=== PATIENT | female | born 2005 | race Caucasian/White ===

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

== ENCOUNTER 2024-08-18 14:53 | Emergency (ER) | payer OTHER, SELFPAY ==
--- NOTE | 2024-08-18 15:47 | ED_ITS ---
Discharge Plan Disposition Patient Disposition: Home, Self-Care Condition: Good Prescriptions Prescriptions: New ondansetron 4 mg Tablet,Disintegrating 4 mg PO Q8H PRN (Reason: Nausea) Qty: 12 0RF No Action buspirone 10 mg tablet 20 mg PO BID Qty: 120 2RF escitalopram oxalate [Lexapro] 20 mg tablet 20 mg PO DAILY Qty: 90 0RF trazodone 50 mg tablet 50 mg PO QHS PRN (Reason: sleep) Qty: 90 0RF norethindrone-e.estradiol-iron 1 EACH tablet 1 each PO DAILY Referrals Follow up/Referrals: Terrell Carlos MD [Primary Care Provider] - See instructions Activity Restrictions/Add. Instructions Additional Instructions/Restrictions: Drink plenty of fluids. Take tylenol or ibuprofen for pain or fever. Take the medications as directed. Follow up with your regular doctor. GO TO THE ER FOR ANY WORSENING SYMPTOMS Clinical Impressions Clinical Impression: Gastroenteritis Stand Alone Forms Stand Alone Forms: Work/School Release Instructions Patient Instructions: Viral Gastroenteritis, DI for Viral Gastroenteritis -- Adult, Ondansetron Print Language Print Language: Albanian Discharge ED Provider: Diaz Francisco [facility] HPI General Stated complaint: fever,diarrhea flu shot 48hrs ago rahman Time Seen by Provider: 08/18/24 15:47 History of Present Illness Provider Complaint: She states that since last night she has had diarrhea and nausea. She has also had a low grade fever at times. She denies any abdominal pain. Related Data Home Medications ?Medication ?Instructions ?Recorded ?Confirmed norethindrone 1.5 mg-ethinyl 1 each PO DAILY control 01/12/22 04/04/24 estradiol 30 mcg(21)/iron 75 mg(7) tablet Previous Rx's ?Medication ?Instructions ?Recorded buspirone 10 mg tablet 20 mg (2 x 10 mg) PO BID #120 tabs 07/21/24 escitalopram oxalate 20 mg tablet 20 mg PO DAILY #90 tabs 07/21/24 (Lexapro) trazodone 50 mg tablet 50 mg PO QHS PRN sleep #90 tabs 07/21/24 ondansetron 4 mg disintegrating 4 mg PO Q8H PRN Nausea #12 tabs 08/18/24 tablet Allergies Allergy/AdvReac Type Severity Reaction Status Date / Time amoxicillin [AMOXICILLIN] Allergy Mild NA-NAUSEA/V Verified 07/21/24 10:44 OMITING PFSH PFSH Disclaimer: The information contained in this section may have been updated after the patient was seen, as this information can be updated by other users. Medical History (Updated 08/18/24 @ 15:59 by Diaz Francisco APRN) Generalized anxiety disorder Major depressive disorder Social History (System 02/09/22 @ 10:37 by Charbel Stone) Smoking Status: Current every day smoker second hand exposure: No alcohol intake: never substance use type: denies use current occupational status: employed Travel in the last 8 weeks: None household members: family housing: house number of children: 0 current occupational exposures/hazards: No caffeine: No ROS Obtained: Yes All systems reviewed & no additional complaints except as documented Constitutional Constitutional: Denies chills, Denies fever(s) and Reports poor appetite ENT Ears, Nose, Mouth, and Throat: Denies dizziness and Denies sore throat Cardiovascular Cardiovascular: Denies dyspnea Respiratory Respiratory: Denies chest congestion, Denies cough and Denies dyspnea Gastrointestinal Gastrointestingal: Reports as per HPI; Denies abdominal pain Genitourinary Female Genitourinary: Denies difficulty voiding, Denies dysuria, Denies hematuria, Denies urinary frequency, Denies urinary incontinence, Denies urinary hesitancy and Denies urinary urgency Musculoskeletal Musculoskeletal: Denies arthralgias Integumentary/Breasts Skin/Breast: Denies rash Neurologic Neurologic: Denies dizziness Physical Exam General General appearance: alert and in no apparent distress Head Head exam: atraumatic and normocephalic Eye Eye exam: Present normal appearance, PERRL and EOMI ENT ENT exam: Present normal exam, normal oropharynx, mucous membranes moist, TM's normal bilaterally and normal external ear exam Neck Neck exam: Present normal inspection, full ROM and trachea midline; Absent tenderness, meningismus or lymphadenopathy Chest Chest inspection: Present normal inspection and symmetric chest wall rise; Absent tenderness, rash or abscess Respiratory Respiratory exam: Present normal lung sounds bilaterally; Absent respiratory distress, wheezes or stridor Cardiovascular Cardiovascular exam: Present regular rate and normal rhythm; Absent irregular rhythm, systolic murmur, diastolic murmur or JVD Abdominal Exam Abdominal exam: Present soft and hyperactive bowel sounds; Absent distention, tenderness, guarding, rebound, rigidity, psoas sign, obturator sign, heel tap sign, King's sign, Rovsing's sign or tenderness at McBurney's Point Extremities Exam Extremities exam: Present normal inspection and full ROM; Absent tenderness Back Exam Back exam: Present normal inspection and full ROM; Absent tenderness, CVA ten derness (R) or CVA tenderness (L) Neurological Exam Neurological exam: Present alert, oriented X3 and CN II-XII intact Psychiatric Psychiatric exam: Present normal affect and normal mood Skin Skin exam: Present warm, dry, intact and normal color Lymphatic Lymphatic Findings: no adenopathy Medical Decision Making Medical Records Medical records reviewed: No I reviewed the patient's medical records. Screening: Per USPSTF and CDC recommendations, given the prevalence of disease in our [facility], it is our hospital?s policy to screen for HIV and viral Hepatitis for all patients aged 18 and over and those with ongoing risk factors. Walt Inquiry Pt receiving controlled substance: No Lab Data Lab results reviewed: Yes I reviewed the patient's lab results.
[2024-08-18 15:51] VITALS: BP 123/61; PULSE 76; RESP 20; TEMP 37.2; O2SAT 98; BMI 39.8
[2024-08-18 16:01] VITALS: BP 123/61; PULSE 76; RESP 20; TEMP 37.2
== END 2024-08-18 16:14 | disposition home or self-care (01) ==
PROVIDERS: Emergency Provider Nurse Practitioner Family; PCP Internal Medicine Adolescent Medicine
DX: K52.9 Noninfective gastroenteritis and colitis, unspecified (principal)
CPT/HCPCS: 99213; G0381

== ENCOUNTER 2024-11-10 09:32 | Emergency (ER) | payer OTHER, SELFPAY ==
--- NOTE | 2024-11-10 09:39 | EXP.UTC ---
Discharge Plan Disposition Patient Disposition: Home, Self-Care Condition: Good Prescriptions Prescriptions: New nitrofurantoin monohyd/m-cryst [Macrobid] 100 mg Capsule 100 mg PO BID Qty: 10 0RF Rx Instructions: must administer with a meal/food ondansetron 4 mg Tablet,Disintegrating 4 mg PO Q8H PRN (Reason: Nausea) Qty: 12 0RF No Action norethindrone-e.estradiol-iron [Nhung Fe 1.5/30 (28)] 1.5 mg-30 mcg (21)/75 mg (7) tablet 1 tab PO DAILY Patient Comments: TAKE ONE TABLET BY MOUTH EVERY DAY trazodone 50 mg tablet 50 mg PO DAILY Patient Comments: TAKE ONE TABLET BY MOUTH EVERY DAY AT BEDTIME NEEDED FOR SLEEP buspirone 10 mg tablet 10 mg PO BID Patient Comments: TAKE TWO TABLETS BY MOUTH TWICE DAILY escitalopram oxalate 20 mg tablet 20 mg PO DAILY Patient Comments: TAKE ONE TABLET BY MOUTH EVERY DAY levocetirizine 5 mg tablet 5 mg PO DAILY Patient Comments: TAKE ONE TABLET BY MOUTH EVERY DAY multivitamin with folic acid [Tab-A-Lavern] 400 mcg tablet 1 tab PO DAILY Patient Comments: TAKE ONE TABLET BY MOUTH EVERY DAY Referrals Follow up/Referrals: Terrell Carlos MD [Primary Care Provider] - See instructions Activity Restrictions/Add. Instructions Additional Instructions/Restrictions: Drink plenty of fluids. Take tylenol or ibuprofen for pain or fever. Take the medications as directed. Follow up with your regular doctor. GO TO THE ER FOR ANY WORSENING SYMPTOMS The pyridium will make your urine turn orange, this is an expected side effect. It will stain your clothes if it comes into contact with them. We will culture the urine. That will tell what bacteria is causing your infection and which antibiotics will treat it best.This test takes 3 days to complete. Clinical Impressions Clinical Impression: UTI (urinary tract infection) Qualifiers: Urinary tract infection type: site unspecified Hematuria presence: without hematuria Qualified Code(s): N39.0 - Urinary tract infection, site not specified Stand Alone Forms Stand Alone Forms: Work/School Release Instructions Patient Instructions: Urine Culture, DI for Urinary Tract Infection (UTI), Nitrofurantoin Print Language Print Language: Romanian Discharge ED Provider: Diaz Francisco [facility] General Stated complaint: constant pain urinating Time Seen by Provider: 11/10/24 09:39 History of Present Illness Provider Complaint: She states that for the past 3 days she has had dysuria, urinary frequency, and hesitancy. Related Data Home Medications ?Medication ?Instructions ?Recorded ?Confirmed buspirone 10 mg tablet 10 mg PO BID 11/10/24 11/10/24 escitalopram oxalate 20 mg tablet 20 mg PO DAILY 11/10/24 11/10/24 levocetirizine 5 mg tablet 5 mg PO DAILY 11/10/24 11/10/24 multivitamin with folic acid 400 1 tab PO DAILY 11/10/24 11/10/24 mcg tablet (Tab-A-Lavern) norethindrone 1.5 mg-ethinyl 1 tab PO DAILY 11/10/24 11/10/24 estradiol 30 mcg(21)/iron 75 mg(7) tablet (Nhung Fe 1.5/30 (28)) trazodone 50 mg tablet 50 mg PO DAILY 11/10/24 11/10/24 Previous Rx's ?Medication ?Instructions ?Recorded nitrofurantoin 100 mg PO BID #10 caps 11/10/24 monohydrate/macrocrystals 100 mg capsule (Macrobid) ondansetron 4 mg disintegrating 4 mg PO Q8H PRN Nausea #12 tabs 11/10/24 tablet Allergies Allergy/AdvReac Type Severity Reaction Status Date / Time amoxicillin (AMOXICILLIN) Allergy Mild NA-NAUSEA/V Verified 11/09/24 08:57 OMITING PFSH PFSH Disclaimer: The information contained in this section may have been updated after the patient was seen, as this information can be updated by other users. Medical History Generalized anxiety disorder Major depressive disorder Social History Smoking Status: Current every day smoker second hand exposure: No alcohol intake: never substance use type: denies use current occupational status: employed Travel in the last 8 weeks: None household members: family housing: house number of children: 0 current occupational exposures/hazards: No caffeine: No Have you lived/traveled outside US in past 30 days?: No Contact w/someone who lives/traveled outside US past 30 days?: No Exposure to someone with infectious disease in past 14 days?: Yes Do you have a fever (greater than 100.4 F or 38 C)?: No Have you tested positive for COVID-19: No Exposed to someone with COVID-19 in past 14 days?: Yes Do you have a sore throat?: No Do you have a cough?: No Do you have any weakness?: No Do you have any diarrhea?: No Are you experiencing any unusual bleeding?: No Do you have any muscle aches/pain?: No Do you have any abdominal pain?: No Are you experiencing loss of taste or smell?: No ROS Obtained: Yes All systems reviewed & no additional complaints except as documented Constitutional Constitutional: Reports system reviewed and no additional complaints, except as documented, Denies chills and Denies fever(s) Eyes Eyes: Denies eye discharge ENT Ears, Nose, Mouth, and Throat: Denies dysphagia, Denies sore throat and Denies throat swelling Cardiovascular Cardiovascular: Denies chest pain and Denies dyspnea Respiratory Respiratory: Denies chest congestion, Denies cough and Denies dyspnea Gastrointestinal Gastrointestingal: Denies abdominal pain, constipation, diarrhea, dysphagia, nausea or vomiting Genitourinary Female Genitourinary: Reports as per HPI, Reports dysuria, Reports urinary frequency, Denies urinary incontinence, Reports urinary hesitancy and Reports urinary urgency Musculoskeletal Musculoskeletal: Denies arthralgias and Reports back pain Integumentary/Breasts Skin/Breast: Denies rash Neurologic Neurologic: Denies paresthesias Allergic/Immunologic Allergic/Immunologic: Denies throat swelling Physical Exam General General appearance: alert and in no apparent distress Head Head exam: atraumatic and normocephalic Eye Eye exam: Present normal appearance, PERRL and EOMI ENT ENT exam: Present normal exam, mucous membranes moist, TM's normal bilaterally and normal external ear exam Neck Neck exam: Present normal inspection, full ROM and trachea midline; Absent tenderness, meningismus or lymphadenopathy Chest Chest inspection: Present normal inspection and symmetric chest wall rise; Absent tenderness Respiratory Respiratory exam: Present normal lung sounds bilaterally; Absent respiratory distress, wheezes or stridor Cardiovascular Cardiovascular exam: Present regular rate, normal rhythm and normal heart sounds Abdominal Exam Abdominal exam: Present soft and normal bowel sounds; Absent distention, tenderness, guarding, rebound, rigidity, incision, psoas sign, obturator sign, heel tap sign, King's sign, Rovsing's sign or tenderness at McBurney's Point Extremities Exam Extremities exam: Present normal inspection, full ROM and normal capillary refill; Absent tenderness, edema, joint swelling, calf tenderness or cyanosis Back Exam Back exam: Present normal inspection and full ROM; Absent tenderness, CVA tenderness (R) or CVA tenderness (L) Neurological Exam Neurological exam: Present alert, oriented X3 and normal gait Psychiatric Psychiatric exam: Present normal affect and normal mood Skin Skin exam: Present warm, dry, intact and normal color Lymphatic Lymphatic Findings: no adenopathy Medical Decision Making Medical Records Medical records reviewed: No I reviewed the patient's medical records. Screening: Per USPSTF and CDC recommendations, given the prevalence of disease in our region, it is our hospital?s policy to screen for HIV and viral Hepatitis for all patients aged 18 and over and those with ongoing risk factors. Walt Inquiry Pt receiving controlled substance: No Lab Data Lab results reviewed: Yes I reviewed the patient's lab results.
[2024-11-10 09:45] VITALS: BP 125/76; PULSE 75; RESP 19; TEMP 36.8; O2SAT 100; BMI 40.0
[2024-11-10 10:08] LABS: Apearance,Urine Cloudy (Clear); Bilirubin,Urine Negative (Negative); Blood, Urine Negative (Negative); Color,Urine Dark Yellow (Yellow); Glucose,Urine (UA) 1+ (Negative); Ketones,Urine Negative (Negative); Protein,Urine Trace (Negative); Specific Gravity, Urine 1.025 (1.005-1.030); UTC Leukocyte Esterase,Urine Trace (Negative); UTC Nitrate,Urine Positive (Negative); Urobilinogen,Urine 1 EU/dl (0.2)
[2024-11-10 10:10] LABS: Coronavirus 19, PCR Not Detected (NotDetected); Influenza A, PCR Not Detected (NotDetected); Influenza B, PCR Not Detected (NotDetected)
[2024-11-10 10:28] VITALS: BP 125/76; PULSE 75; RESP 19; TEMP 36.8; O2SAT 100
== END 2024-11-10 10:35 | disposition home or self-care (01) ==
PROVIDERS: Emergency Provider Nurse Practitioner Family; PCP Internal Medicine Adolescent Medicine
DX: N39.0 Urinary tract infection, site not specified (principal); J11.1 Influenza due to unidentified influenza virus with other respiratory manifestations
CPT/HCPCS: 81003; 87086; 87636; 99213; G0381

== ENCOUNTER 2025-02-13 09:31 | Outpatient (CLI) | payer MEDICAID, OTHER, SELFPAY ==
[2025-02-13 09:54] VITALS: BMI 40.7
[2025-02-13 10:33] LABS: Urine Pregnancy, HCG Qual. Negative (Negative)
[2025-02-13 10:33] LABS: Basophils % 0.2 % (0.1-2.0); Eosinophils % 0.5 % (0.1-12.0); Hematocrit 40.4 % (37.0-47.0); Hemoglobin 13.3 g/dL (12.2-16.2); Lymphocytes # 2.3 K/mm3 (0.7-4.5); Lymphocytes % 27.7 % (10-50); Mean Corpuscular HGB Conc 32.9 g/dL (31.8-35.4); Mean Corpuscular Hemoglobin 28.3 pg (27.0-31.2); Mean Platelet Volume 8.5 fl (7.4-10.4); Monocytes # 0.4 K/mm3 (0.1-1.0); Monocytes % 4.5 % (1.7-9.3); Neutrophils # 5.4 K/mm3 (1.8-7.8); Neutrophils % 66.9 % (37.0-80.0); Nucleated Red Blood Cells # 0 10^3/uL; Nucleated Red Blood Cells % 0 %; Platelet Count 461 K/mm3 (142-424); Red Cell Distribution Width 13.2 % (11.5-17.5); Red Cell Distribution Width-SD 40.9 fL; White Blood Count 8.2 K/mm3 (4.5-13.0)
[2025-02-13 10:36] LABS: Chloride 103 mmol/L (98-107); Potassium 3.6 mmoL/L (3.5-5.1); Sodium 138 mmol/L (136-145)
[2025-02-13 10:38] LABS: Blood Urea Nitrogen 9 mg/dl (7-17); Creatinine Clearance Estimated 185 mL/min (50-200); Estimated Glomerular Filt Rate 91 ml/min (>60); GFR (African American) 111 ML/MIN (>60)
[2025-02-13 10:39] LABS: Anion Gap 11.6 mEq/L (5-15); Calcium 9.3 mg/dl (8.4-10.2); Carbon Dioxide 27 mmol/L (22.0-30.0); Glucose 109 mg/dl (74-100)
[2025-02-13 15:21] LABS: Alanine Aminotransferase 18 U/L (12-78); Albumin Level 4.3 g/dl (3.5-5.0); Alkaline Phosphatase 77 U/L (38-126); Aspartate Amino Transferase 28 U/L (14-36); Bilirubin,Direct 0.2 mg/dl (0.0-0.4); Bilirubin,Indirect 0.4 mg/dL (0.0-0.9); Bilirubin,Total 0.6 mg/dl (0.2-1.3); Bilirubin,Unconjugated 0.3 mg/dL (0.0-1.1); Total Protein,Serum 8.4 g/dl (6.3-8.2)
[2025-02-13 15:38] LABS: Free T4 (Free Thyroxine) 1.19 ng/dl (0.78-2.19)
[2025-02-13 15:52] LABS: Thyroid Stimulating Hormone 1.23 uIU/mL (0.465-4.68)
[2025-02-13 15:58] LABS: Hemoglobin A1C 5.1 % (4.0-6.0)
[2025-02-13 16:11] LABS: Vitamin B12 241 pg/mL (239-931)
[2025-02-13 16:46] LABS: 25-OH Vitamin D, Total 42.4 ng/mL (30-100)
== END 2025-02-13 23:59 | disposition home or self-care (01) ==
LOC: PREOP 09:41
PROVIDERS: Physician Assistant; PCP Internal Medicine Adolescent Medicine; Visit Provider Surgery
DX: L05.91 Pilonidal cyst without abscess (principal); R53.83 Other fatigue; R73.9 Hyperglycemia, unspecified; R40.0 Somnolence; Z68.35 Body mass index [BMI] 35.0-35.9, adult
CPT/HCPCS: 80048; 80076; 81025; 82306; 82607; 83036; 84439; 84443; 85025

== ENCOUNTER 2025-02-26 06:51 | Day surgery (SDC) | payer MEDICAID, OTHER, SELFPAY ==
[2025-02-22 14:39] VITALS: BMI 39.8
[2025-02-26] VITALS (8 sets, daily range): BP systolic 125–160; BP diastolic 56–96; PULSE 77–103; RESP 17–20; TEMP 36.7–37; O2SAT 95–100
[2025-02-26] MEDS: LACTATED RINGERS 1000ML 1,000 ML 25 ML IV (07:45)
[2025-02-26 08:00] LABS: Urine Pregnancy, HCG Qual. Negative (Negative)
--- NOTE | 2025-02-26 08:14 | EXP.ANES.CKL ---
[facility] Disclaimer: The information contained in this section may have been updated after the patient was seen, as this information can be updated by other users. Medical History Generalized anxiety disorder Major depressive disorder Surgical History History of colonoscopy Family History Other Family history of cancer Family history of diabetes mellitus Family history of heart disease Social History Smoking Status: Current every day smoker second hand exposure: No alcohol intake: never substance use type: denies use current occupational status: employed Travel in the last 8 weeks?: None household members: family housing: house number of children: 0 current occupational exposures/hazards: No caffeine: No Have you lived/traveled outside US in past 30 days?: No Contact w/someone who lives/traveled outside US past 30 days?: No Exposure to someone with infectious disease in past 14 days?: No Do you have a fever (greater than 100.4 F or 38 C)?: No Have you tested positive for COVID-19?: No Exposed to someone with COVID-19 in past 14 days?: No Do you have a sore throat?: No Do you have a cough?: No Do you have any weakness?: No Do you have any diarrhea?: No Are you experiencing any unusual bleeding?: No Do you have any muscle aches/pain?: No Do you have any abdominal pain?: No Are you experiencing loss of taste or smell?: No [facility] Anesthesia Checklist Patient Identification Patient Identification: Arm Band Structural Data Admitted From: Home Planned Operative Procedure/s: Excision of Pilonidal Cyst Consent for Planned Operative Procedure(s) Verified: Yes Verified Documents: Surgical Consent and History and Physical NPO Status Verified Time NPO: 00:00 Additional verifications Anesthesia Reactions: No Hx Blood Transfusions: No Blood Transfusion Reaction: No Airway Assessment Mallampati Score:: Class II C-Spine Mobility Assessed: Yes TMJ Mobility Assessed: Yes Dentition: Good Dentition Neurological Assessment Level of Consciousness: Awake, Alert and Appropriate Anesthesia Plan Anesthesia Risk discussed: Yes Anesthesia Plan: Verified ASA Class: II Anesthesia Type: General
[2025-02-26] MEDS: CLINDAMYCIN PHOSPHATE/D5W 900 MG/50 ML PIGGYBACK 100 MG IV (08:30)
[2025-02-26] MEDS: LIDOCAINE 1% 20ML MDV 20 ML (08:45)
[2025-02-26] MEDS: ROPIVACAINE 0.5% 30ML VIAL 150 MG (08:46)
--- NOTE | 2025-02-26 08:51 | EXP.OP.NOTE ---
Date of procedure: 02/26/25 Pre-op Diagnosis:: Pilonidal cyst Post-op Diagnosis:: Same Procedure performed:: Excision debridement of pilonidal cyst Surgeon:: Adam Wall MD [employer] ADMINISTRATOR:: Diaz Fink Anesthesia: GETKelly Estimated blood loss (mL): 3 Clinical Note:: Patient presents excision of pilonidal cyst. I have been following her since August. She has had evidence of pilonidal cyst inflammation. Never had any drainage. Has not required any incision and drainage thus far. She actually had symptomatic pilonidal cyst with infection in [address] Dunbar and symptoms resolved with conservative management. She is continue to have recurrent symptoms characterized by discomfort and soreness despite multiple courses of antibiotics. Given the refractory recurrent nature of the symptoms despite multiple courses of antibiotics it may be reasonable to proceed with intervention at this time. I discussed this is an option with her. She would like to pursue this. Plan will be for incision and unroofing of the pilonidal disease with debridement. Operative findings:: She had some relatively limited pilonidal disease at the area of the 2 sinus openings with some minimal tracking inferiorly. Operative note:: Consent was obtained patient was taken the operating room. She was given preoperative intravenous antibiotics. The operating room she was placed in a supine position. General anesthesia was induced. She was repositioned and prone position. The area was prepped and draped in the standard surgical fashion. At the site of the 2 mildly irritated pilonidal sinus openings adjacent to 1 another 4 mm punch biopsy was used. This limited tissue was excised. Underlying this still wound was probed. There was some inferior tracking. This was opened somewhat but this underlying tissue appeared to be noninflamed. The tissue focally around the site of the pilonidal sinus openings was somewhat inflamed. It was debrided with a curette. Hemostasis was achieved with electrocautery. Wound was irrigated. Local anesthetic was infiltrated. It was packed with a dry packing gauze. Clean dry sterile dressings were applied Condition: stable Disposition: PACU Complications:: None immediately apparent
--- NOTE | 2025-02-26 09:05 | EXP.ANES.I ---
[facility] Anesthesia Record Part I Anesthesia Record I Intake, IV Amount: 899 Hydration: Adequate Estimated blood loss (mL): 5 Urine output (mL): 0 Blood Products used (#): none Blood Pressure: 137/94 SaO2: 97 Pulse Rate: 83 Airway Patency: Patent Respiratory Rate: 18 Temperature: 98.6 F Patient is:: Drowsy and Stable Stable to PACU at:: 09:00
[2025-02-26] MEDS: HYDROCODONE/APAP 5/325 MG TABLET 1 TAB PO (10:07)
[2025-02-27 11:06] VITALS: BP 160/69; PULSE 95; RESP 17; TEMP 36.1; O2SAT 95
--- NOTE | 2025-02-27 11:06 | EXP.ANES.II ---
[facility] Anesthesia Record Part II Anesthesia Record Part II Discharge Time: 10:10 Destination: Surgical Day Care (OP Surgery) PACU nurse assessment reviewed?: Yes Patient Condition:: Good Anesthesia Complications:: None Swallowing reflex intact?: Yes Airway Patency: Patent Cyanosis?: No Blood Pressure: 160/69 SaO2: 95 Respiratory Rate: 17 Pulse Rate: 95 Temperature: 97.0 F Mental Status: Alert & Oriented Pain level:: 0 Nausea and/or vomitting:: None Intake, IV Amount: 0 Hydration: Adequate
== END 2025-02-26 13:41 | disposition home or self-care (01) ==
PROVIDERS: PCP Internal Medicine Adolescent Medicine; Visit Provider Surgery
PROC: (CPT 11770; principal; 2025-02-26 08:35)
DX: L05.91 Pilonidal cyst without abscess (principal)
CPT/HCPCS: 11770; 81025; J0736; J1100; J2250; J2405; J3010; J7120

== ENCOUNTER 2025-04-23 08:34 | Emergency (ER) | payer OTHER, MEDICAID, SELFPAY ==
--- OUTSIDE RECORDS SUMMARY | 2025-01-27 17:30 | XMS_ITS ---
Author Organization formerly [facility] Address [address] [place] [address] Care Team Providers Care Buyer Assistant Name Role Phone Terrell Carlos Primary Care Provider Unavailabl e Terrell Carlos Unavailable [phone] Migration, Provider Unavailable Unavailable Allergies Allergen (clinical drug ingredient) Drug/Non Drug Allergy documented on EMR Reaction Allergy Type Onset Date Status amoxicillin Amoxicillin throws up Drug Allergy Act joss REASON FOR VISIT [facility] Conversion Encounter Medications Medication SIG (Take, Route, Frequency, Duration) Notes Start Date End Date Status MiraLax - 1-CAPFULS ORALLY ONCE A DAY *Please review and pick correct strength-formulatio n from [employer] options. If intended option is not shown, discontinue and re-order from Quick Search* 11/16/2024 Active Ondansetron 4 MG 1 tab(s) orally every 6 hours prn; Duration: 7 days 12/08/2024 Active Blisovi Fe 1.5/30 WITH IRON 30 MCG-1.5 MG TAKE ONE TABLET BY MOUTH EVERY DAY; Duration: 28 DAYS *Please review and pick correct strength[facility]ulatio [facility]. If intended option is not shown, discontinue and re-order from Quick Search* Active busPIRone HCl 10 MG 1 tab(s) orally 2 times a day; Duration: 30 days Active Omeprazole 20 MG 1 cap(s) orally once a day; Duration: 30 days 01/16/2025 Active hydrOXYzine HCl 25 MG 1 tab(s) orally every 12 hours as needed for sleep or anxiety; Duration: 30 days Active Singulair 10 MG 1 tab(s) orally once a day; Duration: 30 Active Xyzal Allergy 24HR 5 MG 1 tab(s) orally once a day (in the evening); Duration: 30 Active Tab-A-Lavern - TAKE ONE TABLET BY MOUTH EVERY DAY; Duration: 30 Active Symbicort 160-4.5 MCG/ACT 2 puff(s) inhaled 2 times a day; Duration: 30 days Active Escitalopram Oxalate 20 MG 1/2 tab orally once a day Active Nasacort Allergy 24HR 55 MCG/ACT 1 spray(s) in each nostril once a day Active Encounters Encounter Location Date Provider Diagnosis [facility] [address] [facility] [address] [facility] [address] [place] [address] 01/27/2025 Provider Migration Nausea R11.0 and Social anxiety disorder F40.10 Assessments Encounter Date Diagnosis (ICD Code) Assessment Notes Treatment Notes Treatment Clinical Notes Section Notes 01/27/2025 Nausea (ICD-10 - R11.0) 01/27/2025 Social anxiety disorder (ICD-10 - F40.10) Plan Of Treatment Medication Medication Name Sig Start Date Stop Date Notes Omeprazole 20 MG 1 cap(s) orally once a day; Duration: 30 days 01/16/2025 Escitalopram Oxalate 20 MG 1/2 tab orally once a day Next Appt Details Provider Name:Angela Mattson Cezar , 04/26/2025 03:45:00 PM, [address] [facility] [address] [facility], [address], [place], [address], Progress Notes * Cailin MEDINA MDOB:[birth year] (20 yo F)Acc No.[id number]:01/27/2025 Patient: Cailin VELASCO Provider: Epi saldivar Migration :2005 A ge:19 Y S ex:Female Date:01/27/2025 [place] [place], [id number] Pcp:Terrell Carlos Subjective: * Chief Complaints: * 1 . [facility] En[facility]. * Medical History: * Medications: T aking Nasacort Allergy 24HR 55 MCG/ACT Aerosol 1 spray(s) in each nostril once a day , Taking hydrOXYzine HCl 25 MG Tablet 1 tab(s) orally every 12 hours as needed for sleep or anxiety , Taking Xyzal Allergy 24HR 5 MG Tablet 1 tab(s) orally once a day (in the evening) , Taking Singulair 10 MG Tablet 1 tab(s) orally once a day , Taking Symbicort 160-4.5 MCG/ACT Aerosol 2 puff(s) inhaled 2 times a day , Taking Tab-A-Lavern - Tablet TAKE ONE TABLET BY MOUTH EVERY DAY , Taking Ondansetron 4 MG Tablet Disintegrating 1 tab(s) orally every 6 hours prn , Taking MiraLax - POWDER FOR RECONSTITUTION 1-CAPFULS ORALLY ONCE A DAY , Notes to Pharmacist: *Please review and pick correct strength-formulation from [facility] options. If intended option is not shown, discontinue and re-order from Quick Search*, Taking busPIRone HCl 10 MG Tablet 1 tab(s) orally 2 times a day , Taking Blisovi Fe 1.5/30 WITH IRON 30 MCG-1.5 MG TABLET TAKE ONE TABLET BY MOUTH EVERY DAY , Notes to Pharmacist: *Please review and pick correct strength-formulation from [facility] options. If intended option is not shown, discontinue and re-order from Quick Search* * Allergies: A moxicillin: throws up. Objective: * Vitals: Assessment: * Assessment: 1. N ausea - R11.0 (Primary) 2 . S ocial anxiety disorder - F40.10 ? Plan: * Treatment: 2. S ocial anxiety disorder Decrease Escitalopram Oxalate Tablet, 20 MG, 1/2 tab, orally, once a day. * * Electronic signature of Prov ider Migration on 04/23/2025 at 08:57 AM EDT Sign off status: Pending * Provider: Epi saldivar Migration Date: 0 01/27/2025 Generated for Naina hodgson/Massiel/Karinitting on: 0 04/23/2025 08:57 AM EDT
--- OUTSIDE RECORDS SUMMARY | 2025-03-16 06:00 | XMS_ITS ---
Author Organization [facility] Address [address] [place] [address] Care Team Providers Care Straddle Carrier Operator Name Role Phone Terrell Carlos Primary Care Provider Unavailabl Terrell Michael Unavailable [phone] Angela Shane Unavailable [phone] REASON FOR VISIT 1 Month F/U Encounters Encounter Location Date Provider Diagnosis [facility] [address] [address] 03/16/2025 Angela Shane Plan Of Treatment Next Appt Details Provider Name:Angela Robb , 04/26/2025 03:45:00 PM, [address], [place], [address], Progress Notes * Cailin MEDINA MDOB:[birth year] (20 yo F)Acc No.[id number]:03/16/2025 Progress Notes Patient: Cailin VELASCO Provider: MARJAN Hernandez :2005 A ge:19 Y S ex:Female Date:03/16/2025 Address:[address] [place] Pcp:Terrell Carlos Subjective: * Chief Complaints: * 1 . 1 Month F/U. * Medical History: Objective: * Vitals: Assessment: Plan: * Treatment: * * Electronic signature of Lise Shane PA-C on 04/23/2025 at 08:58 AM EDT Sign off status: Pending * Provider: MARJAN Hernandez Date: 0 03/16/2025 Generated for Naina hodgson/Massiel/eTanupam on: 0 04/23/2025 08:58 AM EDT
--- OUTSIDE RECORDS SUMMARY | 2025-04-23 08:00 | XMS_ITS | Encounter Summary ---
Author Organization [facility] Address [address] [place] [address] Phone [email or web address] Care Team Providers Care Wood Boat Builder Supervisor Name Role Phone Unavailable Primary Care Provider Unavailabl e Reason for Visit * Reason Comments Health Center Offerings Encounter Details Date Type Department Care Team (Latest Contact Info) Description 04/23/2025 8:00 AM EDT Clinical Support [facility] [place] [address] [facility] [address] [place] [address] Kathy Saldivar, RN [address] [place] [address] Acute right ankle pain (Primary Dx) Social History Tobacco Use Types Packs/Day Years Used Date Smoking Tobacco: Never Assessed Comments Unknown Sex and Gender Information Value Date Recorded Sex Assigned at Not on file Legal Sex Female 6:53 AM CDT Gender Identity Not on file Sexual Orientation Not on file documented as of this encounter Last Filed Vital Signs Vital Sign Reading Time Taken Comments Blood Pressure 132/82 04/23/2025 8:12 AM EDT Pulse 77 04/23/2025 8:12 AM EDT Temperature - - Respiratory Rate - - Oxygen Saturation 98% 04/23/2025 8:12 AM EDT Inhaled Oxygen Concentration - - Weight - - Height - - Body Mass Index - - documented in this encounter Progress Notes * Kathy Saldivar RN - 04/23/2025 8:00 AM EDT Cailin Ro is a 20 y.o. 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 NAD. Pain rated 3/10 at rest. Reports this am ~ 05:30 she rolled her ankle in parking lot on uneven area of pavement with water. Trip no fall. No noted injury to UEs /Head. Alert and oriented. Pain with dorsiflexion and flexion atankle, swelling noted to lateral malleolus but no discoloration or deformity. No crepitus. Pedal pulses normal. She has been able to limp and work after incident. She did not feel a pop in ankle whenshe rolled ankle ( ? Inward or outward). Increase pain and swelling with ambulation. Mild TTP to lateral ankle. Advised if she feels she needs treatment or can't work to go to [facility]. Denies prior hxwith right ankle prior to incident. No other pain noted. Pain at worst with ambulation is 5/10. Vitals: 04/23/25 0812 BP: 132/82 Pulse: 77 SpO2: 98% There were no vitals filed for this visit. No results found for this or any previous visit. ICD-10-CM ICD-9-CM 1. Acute right ankle pain M25.571 719.47 338.19 trip/rolled ankle, swelling PE : As noted above. Pain with ambulation, swelling to lateral malleolus of right ankle. Mild tenderness. No discoloration or deformity. There are no Patient Instructions on file for this visit. Kathy Saldivar RN documented in this encounter Plan of Treatment Not on file documented as of this encounter Visit Diagnoses Diagnosis Acute right ankle pain- Primary documented in this encounter
[2025-04-23 08:44] VITALS: BP 118/70; PULSE 78; RESP 16; TEMP 36.9; O2SAT 99; BMI 40.7
--- OUTSIDE RECORDS SUMMARY | 2025-04-23 08:58 | XMS_ITS | Patient Health Record ---
Author Organization [facility] Address [address] [place] [address] Care Team Providers Care Hot Stick Worker Name Role Phone Terrell Carlos Primary Care Provider Unavailabl Terrell Michael Unavailable [phone] Angela Holm Unavailable [phone] Mariia Gonzalez Unavailable [phone] Angela Shane Unavailable [phone] Migration, Provider Unavailable Unavailable Allergies Allergen (clinical drug ingredient) Drug/Non Drug Allergy documented on EMR Reaction Allergy Type Onset Date Status amoxicillin Amoxicillin throws up Drug Allergy Act joss Results Component Value Reference Range Notes CULTURE, URINE, ROUTINE (395 ) Reviewed date:11/14/2024 10:04:52 AM Interpretation: Performing Lab:[place] Yuniel Christina Notes/Report: NON-FASTING CULTURE, URINE, ROUTINE SEE NOTE CULTURE, URINE, ROUTINE Micro Number: [id number] Test Status: Final Specimen Source: Urine Specimen Quality: Adequate Result: Mixed genital aki isolated. These superficial bacteria are not indicative of a urinary tract infection. No further organism identification is warranted on this specimen. If clinically indicated, recollect clean-catch, mid-stream urine and transfer immediately to Urine Culture Transport Tube. Urinalysis Reviewed date:11/09/2024 12:31:11 PM Interpretation: Performing Lab: Notes/Report: Color/Clarity yellow Leuk neg Nitrite neg Urobili 0.2 Protein neg pH 7.0 Blood neg Sp. Gr. >=1.030 Ketone neg Bili neg Glucose neg CULTURE, THROAT (394) Reviewed date:01/02/2025 04:43:56 PM Interpretation: Performing Lab:[place], [facility], [place] Yunielcinthya Christina Notes/Report: NON-FASTING CULTURE, THROAT SEE NOTE CULTURE, THROAT Micro Number: [id number] Test Status: Final Specimen Source: Throat Specimen Quality: Adequate Result: No oropharyngeal pathogens recovered. Rapid Strep Reviewed date:12/27/2024 11:58:24 AM Interpretation:Negative Performing Lab: Notes/Report: Negative Rapid Covid/Flu A-B Combo Reviewed date:06/15/2024 03:12:33 PM Interpretation: Performing Lab: Notes/Report: Rapid Covid positive Flu A neg Flu B neg Medications Medication SIG (Take, Route, Frequency, Duration) Notes Start Date End Date Status Omeprazole 20 MG 1 tablet 1/2 to 1 ho ur before morning meal Orally Once a day; Duration: 30 days 02/13/2025 Active busPIRone HCl 10 mg TAKE ONE TABLET BY M OUTH TWICE DAILY; Duration: 30 Active Ondansetron 4 MG 1 tab(s) orally ever y 6 hours prn; Duration: 7 days 12/08/2024 Active Nhung FE 1.5/30 1.5-30 MG-MCG 1 tablet Orally Once a day; Duration: 28 days Active Tab-A-Lavern - TAKE ONE TABLET BY M OUTH EVERY DAY; Duration: 30 Active traZODone HCl 50 MG 0.5 tablet at bedtim e as needed Orally Once a day; Duration: 30 days Active Symbicort 160-4.5 MCG/ACT 2 puff(s) inha led 2 times a day; Duration: 30 days Active Singulair 10 MG 1 tab(s) orally once a day; Duration: 30 Active Escitalopram Oxalate 20 MG 1 tablet oral ly once a day; Duration: 30 days Active Xyzal Allergy 24HR 5 MG 1 tab(s) orally once a day (in the evening); Duration: 30 Active Nasacort Allergy 24HR 55 MCG/ACT 1 spray(s) in each nostril once a day Active Immunizations Vaccine Route Administration Date Status Comme nts Menactra IM Intramuscular 05/09/2020 Administered Influenza-Fluzone 3+years (NON-MEDICARE) IM Intramuscular 09/05/2018 Administered Havrix Pediatric 2 Dose IM Intramuscular 12/23/2017 Admini stered Havrix Pediatric 2 Dose IM Intramuscular 07/07/2018 Admini stered Gardasil (HPV4) IM Intramuscular 10/05/2016 Administered Gardasil (HPV4) IM Intramuscular 02/23/2017 Administered Gardasil (HPV4) IM Intramuscular 07/27/2017 Administered FLUZONE 6MO - OLDER IM Intramuscular 08/29/2019 Administer ed FLUZONE 6MO - OLDER IM Intramuscular 07/15/2020 Administer ed Fluvirin--Influenza vaccine 3+ year IM Intramuscular 10/10/2010 Administered Fluvirin--Influenza vaccine 3+ year IM Intramuscular 07/20/2012 Administered Social History Tobacco Use: Social History Observation Description Date Details (start date - stop date) Never Smoker NA - NA Smoking: Question Answer Notes Are you a: nonsmoker Problems Problem Type SNOMED Code ICD Code Onset Dates Problem Status W/U Status Risk Notes Problem Functional dyspepsia (5588797) Functional dyspepsia (K30) Active confirmed Problem Slow transit constipation (07038919) Slow transit constipation (K59.01) Active confirmed Problem Mixed anxiety and depressive disorder (575666864) Depression with anxiety (F41.8) Active confirmed Problem Allergic rhinitis (51803010) Chronic allergic rhinitis (J30.9) Active confirmed Problem Urgent desire to urinate (41326493) Urinary urgency (R39.15) Active confirmed Problem Insomnia disorder related to another mental disorder (29722728) Psychophysiological insomnia (F51.04) Active confirmed Problem Social anxiety disorder (85413069) Social anxiety disorder (F40.10) Active confirmed Problem Childhood obesity (222528433) Pediatric body mass index (BMI) of greater than or equal to 95th percentile for age (Z68.54) Active confirmed Problem Metrorrhagia (54345022) Metrorrhagia (N92.1) Active confirmed Problem History of febrile seizure (275196896) History of febrile seizure (Z87.898) Active confirmed Problem Generalized anxiety disorder (76137479) VALENTE (generalized anxiety disorder) (F41.1) Active confirmed Problem Anxiety (65719092) Situational a nxiety (F41.8) Active confirmed Problem Daytime somnolence (997323899913) Daytime somnolence (R40.0) Active confirmed Problem Allergic rhinitis caused by pollen (34168596) Seasonal allergic rhinitis due to pollen (J30.1) Active confirmed Problem Seasonal allergic rhinitis (108167806) Seasonal allergic rhinitis, unspecified trigger (J30.2) Active confirmed Problem Allergic rhinitis (85103196) Acute allergic rhinitis (J30.9) Active confirmed Problem Medication overuse headache (944567574) Medication overuse headache (G44.40) Active confirmed Problem Allergic contact dermatitis (733193619) Allergic eczema (L23.9) Active confirmed Problem Obese class II (946565515818342) Body mass index [BMI] 35.0-35.9, adult (Z68.35) Active confirmed Problem Gastroesophageal reflux disease (914003158) Gastroesophageal reflux disease, unspecified whether esophagitis present (K21.9) Active confirmed Problem Loss of taste (18356096) Loss of taste (R43.2) Active confirmed Problem Acute cough (35342883657128303 4) Acute cough (R05.1) Active confirmed Vital Signs Heart Rate 76 /min 02/13/2025 Temperature 98.5 degrees Fahrenheit 02/13/2025 Blood pressure diastolic 78 mm Hg 02/13/2025 Height 64 in 02/13/2025 Blood pressure systolic 118 mm Hg 02/13/2025 Weight 230.6 lbs 02/13/2025 BMI 39.58 kg/m2 02/13/2025 Encounters Encounter Location Date Provider Diagnosis [facility] [address] [place] [address] 01/27/2025 Provider Migration Nausea R11.0 and Social anxiety disorder F40.10 [facility] [address] [place] [address] 06/15/2024 Angela Shane Acute cough R05.1 ; COVID U07.1 and Contusion of right breast, initial encounter S20.01XA [facility] [address] [address] 08/04/2024 Angela Shane Viral gastroenteriti s A08.4 [facility] [address] [place] [address] 08/25/2024 Angela Shane Pilonidal cyst L05.9 1 [facility] [address] [facility] [address] [place] [address] 11/09/2024 Mariia McNees Urinary urgency R39. 15 and Sensation of pressure in bladder area R39.89 [facility] [address] [facility] [address] [place] [address] 11/16/2024 Mariia McNees Slow transit constip ation K59.01 [facility] [address] [address] 12/08/2024 Mariia McNees Slow transit constip ation K59.01 [facility] [address] [address] 12/27/2024 Angela Alta Sore throat J02.9 [facility] [address] [facility] [address] [place] [address] 01/16/2025 Angela Holm Nausea R11.0 ; Socia l anxiety disorder F40.10 and Psychophysiological insomnia F51.04 [facility] [address] [facility] [address] [place] [address] 02/13/2025 Angela Shane Body mass index [BMI ] 35.0-35.9, adult Z68.35 ; Fatigue, unspecified type R53.83 ; Hyperglycemia R73.9 ; Daytime somnolence R40.0 ; Social anxiety disorder F40.10 ; Psychophysiological insomnia F51.04 and Gastroesophageal reflux disease, unspecified whether esophagitis present K21.9 [facility] [address] [facility] [address] [place] [address] 06/15/2024 Terrell Besson [facility] [address] [facility] [address] [place] [address] 11/10/2024 Mariia McNees [facility] [address] [facility] [address] [place] [address] 12/25/2024 Terrell Besson [facility] [address] [address] 02/05/2025 Terrell Carlos Assessments Encounter Date Diagnosis (ICD Code) Assessment Notes Treatment Notes Treatment Clinical Notes Section Notes 06/15/2024 COVID (ICD-10 - U07.1) Discu ssed importance of pulmonary toilet and hydration. Advised on vitamin regimen. Discussed reasons to seek care in clinic or ED (worsening cough, shortness of breath, high fever not responding to treatment, inability to tolerate typical PO intake). Also recommended self-quarantine at home per CDC guidelines. Back to work June 19 if fever free x 24 hours without taking fever reducing medications and feeling better. Discussed the etiology & expected course of a viral URI and discussed the rationale for not prescribing antibiotics. Continue supportive care with PRN antipyretics, OTC cough/cold meds Coricidin HBP, nasal saline rinses/Neti pot with distilled water, salt water gargles, cough drops, and humidifier. Encourage PO hydration. Discussed the signs and symptoms of worsening condition and need for reassessment in clinic or ED. Keep previously scheduled physical exam or f/u sooner PRN. Patient voices understanding and is agreeable to this plan. 06/15/2024 Acute cough (ICD-10 - R05.1) 08/04/2024 Viral gastroenteriti s (ICD-10 - A08.4) Reassurance. Discussed usual viral etiology and self-limiting condition. Encouraged BRAT diet and clear fluids. Monitor for evidence of significant dehydration and notify of any blood or mucus in stool. Avoid juice and anti-diarrheal agents. Use Tylenol as needed for fevers. May return to school when fever and vomiting have resolved for 24 hours. Discussed return precautions to clinic vs ED. Patient and family voice understanding. 08/25/2024 Pilonidal cyst (ICD- 10 - L05.91) History of pilonidal cyst in the past. Not infected currently. Reviewed s/s of abscess formation and for patient to return to office if this develops. Will refer back to General Surgery. Patient and family voice understanding and agree with the plan of care above. 11/16/2024 Slow transit constipation (ICD-10 - K59.01) Discussed what constipation is and how this is treated. Discussed starting Miralax at 1 capful in 8oz clear liquids once daily and titrating dose to affect. Patient may need to be on this for months. Discussed healthy diet high in fiber as well as increase water in diet. Goal is 1 soft BM per day. 12/08/2024 Slow transit constipation (ICD-10 - K59.01) Decrease miralax to 1 capful daily. [place] diet, zofran prn. RTC in 2-3 weeks to re-evaluate 01/16/2025 Nausea (ICD-10 - R11.0) possible gastritis vs medication side effect? trial of PPI. Stop trazodone. wean lexapro as tolerated and then consider weaning buspirone but do these things slowly as tolerated. return precautions reviewed 01/16/2025 Social anxiety disorder (ICD-10 - F40.10) 02/13/2025 Fatigue, unspecified type (ICD-10 - R53.83) I personally will review all labs once final. 02/13/2025 Body mass index [BMI ] 35.0-35.9, adult (ICD-10 - Z68.35) Discussed lifestyle changes to affect weight loss. Discussed the impact of diet, excercise, and weight loss on cardiovascular health, overall health, and overall quality of life. Discussed specific dietary changes and excercise routines that may benefit the patient. Will recheck BMI at next visit. 01/27/2025 Nausea (ICD-10 - R11.0) 01/27/2025 Social anxiety disorder (ICD-10 - F40.10) 12/27/2024 Sore throat (ICD-10 - J02.9) Recommend start antibiotics as noted, FU on culture when available and plan to stop antibiotics if negative for bacterial growth. Importance of good fluid intake and infectious precautions reviewed. 11/09/2024 Urinary urgency (ICD-10 - R39.15) Reassurance UA is unremarkable. May be related to bladder, urinary tract inflammation. Increase oral fluid intake, cranberry juice daily, pyridium x 2 days pending cx. Return precautions discussed. 11/09/2024 Sensation of pressur e in bladder area (ICD-10 - R39.89) 02/13/2025 Hyperglycemia (ICD-1 0 - R73.9) I personally will review all labs once final. 01/16/2025 Psychophysiological insomnia (ICD-10 - F51.04) 06/15/2024 Contusion of right breast, initial encounter (ICD-10 - S20.01XA) 1 cm circumscribed along right breast which appears to be a trauma induced bruise. Normal nipple, no nodules or lymphadenopathy. Discussed warm compress and return to clinic if worsens or no improvement in a week or if new symptoms develop. Patient voices understanding and agrees with the plan of care above. 02/13/2025 Daytime somnolence (ICD-10 - R40.0) I personally will review all labs once final. 02/13/2025 Social anxiety disorder (ICD-10 - F40.10) Stressed importance of medication compliance. Denies SI/HI. Referral placed for counseling. I personally will review all labs once final. Discussed lifestyle changes including limiting screen time, social media, moving TV our of room, eating three meals a day with a healthy snack, gratitude journaling, getting regular exercise with at least a 30 minute daily walk, joining groups, and therapy. Discussed a few exercises to bring the patient back into the present to utilize in anxious moments. 02/13/2025 Psychophysiological insomnia (ICD-10 - F51.04) Continue current medication regimen, controlled. Discussed importance of consistently taking medications. Discussed sleep hygiene. I personally will review all labs once final. 02/13/2025 Gastroesophageal reflux disease, unspecified whether esophagitis present (ICD-10 - K21.9) Discussed etiology of reflux. Printed education material. Avoid certain foods that exacerbate symptoms, such as caffeine and spicy foods. RTC if no improvement. Plan Of Treatment Pending Test Test Name Order Date EEG 01/19/2011 H-URINE CULTURE 12/17/2010 H-THROAT CULTURE 06/25/2011 H-STREP SCREEN (RAPID) 06/25/2011 H-INFLUENZAE A & B ANTIBODY 12/17/2017 H-URINALYSIS 12/17/2010 M-Hepatic Panel 02/13/2025 M-Hemoglobin A1C 02/13/2025 M-Free T4 (Free Thyroxine) 02/13/2025 M-Thyroid Stimulating Hormone 02/13/2025 M-Vitamin B12 02/13/2025 M-Vitamin D 25 Hydroxy 02/13/2025 Future Test Test Name Order Date H-CBC with AUTO DIFF 01/09/2012 H-CMP 01/09/2012 H-TRILEPTAL(OXCARBAZEPINE) 01/09/2012 Next Appt Details Provider Name:Angela Robb , 04/26/2025 03:45:00 PM, [address], [place], [address], Insurance Providers Payer Name Payer Address Payer Phone Subscriber Number Group Number Insured Name Patient Relationship to Insured Coverage Start Date Coverage End Date [employer] [place] [employer] [address] [address] [place] [address] [id number] Cailin Oropeza Self - patient is the insured Medications Administered Medication Instructions Date of Administration Dosage Notes Dexamethasone 4mg Injection 08/20/2023 4 mg Dexamethasone 4mg Injection 10/21/2023 4 mL Dexamethasone 4mg Injection 11/26/2023 4 mg Medical (General) History Medical History History ICD Code seasonal allergies h/o febrile seizure in 2004 EGD wtih bile reflux gastritis and evide nce of functional dyspepsis 03/14 Normal colonoscopy 06/14 Flu B Surgical History Surgery Date(Month/Year) correction for strabismus 12/2007 colonoscopy 04/2021 wisdom Teeth 06/2021 Hospitalization History Reason Date(Month/Year) febrile seizures 2004
--- OUTSIDE RECORDS SUMMARY | 2025-04-23 08:58 | XMS_ITS | Clinical Summary ---
Author Organization [facility] Address [address] [place] [phone] Phone [email or web address] Care Team Providers Care Rivet Sticker Name Role Phone Unavailable Primary Care Provider Unavailabl e Allergies Active Allergy Reactions Criticality Noted Date Comments Amoxicillin 04/23/2025 Medications No known medications Encounters Date Type Department Care Team Description 04/23/2025 8:00 AM EDT Clinical Support [facility] [address] [place] [address] [place] [address] Kathy Saldivar RN Acute right ankle pain (Primary Dx) from Last 3 Months Social History Tobacco Use Types Packs/Day Years Used Date Smoking Tobacco: Never Assessed Comments Unknown Sex and Gender Information Value Date Recorded Sex Assigned at Not on file Legal Sex Female 6:53 AM CDT Gender Identity Not on file Sexual Orientation Not on file Last Filed Vital Signs Vital Sign Reading Time Taken Comments Blood Pressure 132/82 04/23/2025 8:12 AM EDT Pulse 77 04/23/2025 8:12 AM EDT Temperature - - Respiratory Rate - - Oxygen Saturation 98% 04/23/2025 8:12 AM EDT Inhaled Oxygen Concentration - - Weight - - Height - - Body Mass Index - - Plan of Treatment Health Maintenance Due Date Last Done Comments Dental Cleaning/Exam 2004 Cervical Cancer Screening 2020 Men B Immunization (1 of 2 - Standard) 2020 Covid-19 Immunization ( - season) 2024 06/18/2022, 03/07/2021, 02/14/2021 Tetanus Diphtheria and Pertussis Immunization (7 - Td or Tdap) 05/06/2025 05/06/2015, 05/18/2008, 05/06/2006, Additional history exists Influenza Immunization (Season Ended) 2025 08/12/2022, 07/15/2020, 08/29/2019, Additional history exists Hepatitis B Immunization Completed 005, 2004, 2004 HIB Immunization Completed 05/18/2008, , 2004, Additional history exists Polio Immunization Completed 05/18/2008, 0 2004, 2004, Additional history exists Varicella Immunization Completed 05/06/2015, 2004 HPV Immunization Completed 07/27/2017, 02/23/2017 Hepatitis A Immunization Completed 07/07/2018, 03/0 10/2017 Meningococcal Immunization Completed 05/09/2020, Pneumococcal: Ped (0 to 5 Yrs) and At-Risk Member (6 to 64 Yrs) Aged Out No longer eligible based on patient's age to complete this topic
--- NOTE | 2025-04-23 09:02 | XR_ITS ---
FINAL REPORT CLINICAL HISTORY: inversion injury COMPARISON: None FINDINGS: RIGHT FOOT 2 views of the right foot were obtained. There is no acute fracture or dislocation. Visualized joint spaces are normally aligned. Soft tissues are unremarkable. IMPRESSION: No acute bony abnormality. Reviewed, Interpreted and Dictated by Teo Sheehan MD Transcribed by Yissel Joaquin Authenticated and [facility]
--- NOTE | 2025-04-23 09:02 | XR_ITS ---
FINAL REPORT TECHNIQUE: Right tibia and fibula 2 views CLINICAL HISTORY: inversion injury ankle, pain over shearer COMPARISON: None FINDINGS: RIGHT TIBIA FIBULA: There is no acute fracture or dislocation. The joint spaces are intact. There is no soft tissue abnormality. IMPRESSION: No acute fracture Reviewed, Interpreted and Dictated by Teo Sheehan MD Transcribed by Yissel Joaquin Authenticated and [facility]
--- NOTE | 2025-04-23 09:02 | XR_ITS ---
FINAL REPORT CLINICAL HISTORY: inversion injury COMPARISON: None FINDINGS: RIGHT ANKLE 3 views of the right ankle were obtained. There is no acute fracture or dislocation. The mortise is intact. Visualized joint spaces are normally aligned. Diffuse soft tissue swelling is present. IMPRESSION: Diffuse soft tissue swelling, without acute bony abnormality. Reviewed, Interpreted and Dictated by Teo Sheehan MD Transcribed by Yissel Joaquin Authenticated and [facility]
--- NOTE | 2025-04-23 09:03 | ED_ITS ---
Discharge Plan Disposition Patient Disposition: Home, Self-Care Prescriptions Prescriptions: No Action omeprazole 40 mg capsule,delayed release(DR/EC) 40 mg PO DAILY Qty: 90 0RF norethindrone-e.estradiol-iron [[place] Fe 1.5/30 (28)] 1.5 mg-30 mcg (21)/75 m g (7) tablet 1 tab PO DAILY Patient Comments: TAKE ONE TABLET BY MOUTH EVERY DAY trazodone 50 mg tablet 50 mg PO DAILY Patient Comments: TAKE ONE TABLET BY MOUTH EVERY DAY AT BEDTIME NEEDED FOR SLEEP buspirone 10 mg tablet 10 mg PO BID Patient Comments: TAKE TWO TABLETS BY MOUTH TWICE DAILY escitalopram oxalate 20 mg tablet 20 mg PO DAILY Patient Comments: TAKE ONE TABLET BY MOUTH EVERY DAY levocetirizine 5 mg tablet 5 mg PO DAILY Patient Comments: TAKE ONE TABLET BY MOUTH EVERY DAY multivitamin with folic acid [Tab-A-Lavern] 400 mcg tablet 1 tab PO DAILY Patient Comments: TAKE ONE TABLET BY MOUTH EVERY DAY Referrals Follow up/Referrals: Chris Dougherty DO [Staff Physician, Orthopedics] - See instructions Terrell Carlos MD [Primary Care Provider, Internal Medicine] - See instructions Activity Restrictions/Add. Instructions Additional Instructions/Restrictions: At this time it was felt you are safe to be discharged home. If new or worsening symptoms please do not hesitate to return the emergency department. Please call and make an appoint with Dr. Dougherty as soon as you are able and bear weight as you are able until then. Clinical Impressions Clinical Impression: Ankle sprain Print Language Print Language: Chilean Discharge ED Provider: Angel Mckinnon General Adult HPI General Chief complaint: Extremity Injury, Lower Stated complaint: AO 04/23/25 5:45 Fall Sprained R Ankle Time Seen by Provider: 04/23/25 08:57 History of Present Illness HPI narrative: Patient 20-year-old female no pertinent past medical history presents emergency department for evaluation of inversion injury to her right ankle. This occurred on her way to work this morning with an inversion injury. She has resultant pain of her distal right shearer ankle and foot. No other traumatic complaints. No other acute complaints at this time no bleeding diathesis or anticoagulants. Please note that above description of symptoms, in this electronic medical record under categorization of recalled from ER triage doctor by RN are reflective of an initial nursing assessment, however, is not reflective of my full history and physical exam that was personally taken and clarified. Consequentially, this preceding description of symptoms, which may include the patient's categorized chief complaint in the EMR, do not reflect my personal clinical impression, and the ultimate description of history of present illness and patient stated complaints should be deferred to this section of the note. Unless stated otherwise or congruent with this section of the note, additional signs, symptoms, or incongruence should be interpreted as inaccurate with my clinical impression. Related Data Home Medications ?Medication ?Instructions ?Recorded ?Confirmed buspirone 10 mg tablet 10 mg PO BID 11/10/24 escitalopram oxalate 20 mg tablet 20 mg PO DAILY 11/1004/19/25 levocetirizine 5 mg tablet 5 mg PO DAILY 11/10/2403/26 multivitamin with folic acid 400 1 tab PO DAILY 04/19/25 mcg tablet (Tab-A-Lavern) norethindrone 1.5 mg-ethinyl 1 tab PO DAILY 11/10/24 0 04/19/25 estradiol 30 mcg(21)/iron 75 mg(7) tablet (Nhung Fe 1.5/30 (28)) trazodone 50 mg tablet 50 mg PO DAILY 11/10/2403/26 Previous Rx's ?Medication ?Instructions ?Recorded omeprazole 40 mg capsule,delayed 40 mg PO DAILY #90 ca ps 02/27/25 release Allergies Allergy/AdvReac Type Severity Reaction Status Date / Time amoxicillin (AMOXICILLIN) Allergy Mild NA-NAUSEA/V Verified 04/23/25 09:08 OMITING [facility] Disclaimer: The information contained in this section may have been updated after the patient was seen, as this information can be updated by other users. Medical History Generalized anxiety disorder Major depressive disorder Surgical History History of excision of pilonidal cyst History of colonoscopy Family History Other Family history of cancer Family history of diabetes mellitus Family history of heart disease Social History Smoking Status: Current every day smoker second hand exposure: No alcohol intake: never substance use type: denies use current occupational status: employed Travel in the last 8 weeks?: None household members: family housing: house number of children: 0 current occupational exposures/hazards: No caffeine: No Have you lived/traveled outside [place] in past 30 days?: No Contact w/someone who lives/traveled outside [place] past 30 days?: No Exposure to someone with infectious disease in past 14 days?: No Do you have a fever (greater than 100.4 F or 38 C)?: No Have you tested positive for COVID-19?: No Exposed to someone with COVID-19 in past 14 days?: No Do you have a sore throat?: No Do you have a cough?: No Do you have any weakness?: No Do you have any diarrhea?: No Are you experiencing any unusual bleeding?: No Do you have any muscle aches/pain?: No Do you have any abdominal pain?: No Are you experiencing loss of taste or smell?: No Other Medical History Have you received the Flu Vaccine for this season: Yes Have you received the Pneumonia Vaccine: No ROS Obtained: Yes Systems reviewed as appropriate & no additional complaints except as documented Physical Exam General General appearance: alert and in no apparent distress Head Head exam: atraumatic and normocephalic Eye Eye exam: Present PERRL and EOMI ENT ENT exam: Present mucous membranes moist Neck Neck exam: Present normal inspection Chest Chest inspection: Present normal inspection and symmetric chest wall rise Respiratory Respiratory exam: Absent respiratory distress Cardiovascular Cardiovascular exam: Present regular rate and normal rhythm Extremities Exam Extremities exam: Present other (Swelling over the lateral malleolus on the right. Palpable dorsal pedal pulse on the right. Tenderness over the distal tib-fib, ankle, dorsal aspect of the foot.) Neurological Exam Neurological exam: Present alert Psychiatric Psychiatric exam: Present normal affect Skin Skin exam: Present warm and dry Medical Decision Making Medical Records Screening: Per USPSTF and CDC recommendations, given the prevalence of disease in our region, it is our hospital?s policy to screen for HIV and viral Hepatitis for all patients aged 18 and over and those with ongoing risk factors. Walt Inquiry Pt receiving controlled substance: No Vital Signs: 04/23/25 08:44 Temperature 98.5 F Temperature Source Oral Pulse Rate [Left] 78 Respiratory Rate 16 Blood Pressure [Right Arm] 118/70 Blood Pressure Mean [Right Arm] 86 Blood Pressure Source [Right Arm] Automatic Cuff Blood Pressure Position [Right Arm] Sitting 02 Sat by Pulse Oximetry 99 Oxygen Delivery Method Room Air Orders (Tests/Meds): ED MEDICATIONS Discontinued Medications Generic Name Dose Route Start Last Admin Trade Name Austinq PRN Reason Stop Dose Admin Acetaminophen 1,000 mg 04/23/25 09:03 04/23/25 09:24 Acetaminophen 500mg Tab PO 04/23/25 09:04 1,000 mg ONCE ONE Administration ORDERS Category Date Time Status Ankle XR -Right minimum 3 Views [XR ankle RT min 3V] Exams 04/23/25 09:02 Completed Stat Fibula/tibia XR right 2 views [XR tibia fibula RT 2V] Exams 04/23/25 09:02 Completed Stat Foot XR right minimum 3 views [XR foot RT min 3V] Stat Exams 04/23/25 09:02 Completed Medical Decision Narrative: In summary patient is a 20-year-old female past medical history described above presents emergency department for evaluation of an inversion injury from m echanical fall occurring prior to arrival. Patient took ibuprofen prior to arrival differential diagnosis includes fracture, musculoskeletal strain, among others. Workup will be limited to plain films of the right lower extremity distal to the knee. Other imaging was considered however given patient is atraumatic on other extremities and did not hit her head will be deferred at this time. Tylenol will be added on. X-ray informally interpreted by me no acute displaced fracture. Formal read shows diffuse soft tissue swelling without acute bony abnormality. Given this patient will be provided crutches and appropriate for discharge at this time will follow-up with Dr. Dougherty on outpatient basis for continued valuation. Critical Care Critical Care Time Critical Care Time: No
[2025-04-23 09:15] VITALS: BP 119/65
[2025-04-23] MEDS: ACETAMINOPHEN 500MG TAB 1000 MG PO (09:24)
[2025-04-23 09:30] VITALS: BP 113/63
[2025-04-23 10:00] VITALS: BP 116/79
--- NOTE | 2025-04-23 10:33 | PC.NURSE ---
Ankle was wrapped and crutches were given and showed how to use.
[2025-04-23 10:44] VITALS: BP 116/79; PULSE 63; RESP 16; TEMP 36.9; O2SAT 99
== END 2025-04-23 10:46 | disposition home or self-care (01) ==
PROVIDERS: Emergency Provider Emergency Medicine; PCP Internal Medicine Adolescent Medicine
DX: S93.401A Sprain of unspecified ligament of right ankle, initial encounter (principal); F17.210 Nicotine dependence, cigarettes, uncomplicated; M25.571 Pain in right ankle and joints of right foot; X50.1XXA Overexertion from prolonged static or awkward postures, initial encounter
CPT/HCPCS: 73590; 73610; 73630; 99284

== ENCOUNTER 2025-07-31 11:45 | Outpatient (CLI) | payer OTHER, MEDICAID, SELFPAY ==
--- NOTE | 2025-07-31 11:45 | CA_ITS ---
FINAL REPORT CLINICAL HISTORY: PAIN FINDINGS: DUPLEX VENOUS SONOGRAPHY OF THE RIGHT LOWER EXTREMITY Multiple transverse and longitudinal scans were performed of the femoropopliteal deep venous system, with augmentation and compression maneuvers. Normal phasic flow was noted in the visualized deep venous system. No intraluminal increased echogenicity is noted to suggest thrombus. There is normal compression and augmentation of the venous structures. No abnormal venous collaterals are seen. IMPRESSION: No evidence of deep venous thrombosis of the right lower extremity. Reviewed, Interpreted and Dictated by Mel Ellison MD Transcribed by Demetra Wyatt Authenticated and [facility]
== END 2025-07-31 23:59 | disposition home or self-care (01) ==
PROVIDERS: PCP Internal Medicine Adolescent Medicine; Visit Provider Podiatrist
DX: M79.661 Pain in right lower leg (principal)
CPT/HCPCS: 93971